=== PATIENT | female | born 1965 | race Caucasian/White ===

== ENCOUNTER → 2017-10-05 | Outpatient (CLI) | payer BC, OTHER ==
[~2017-10-05] VITALS: Ht 182.9 cm; Wt 109.8 kg
[~2017-10-05] MED LIST: ACETAMINOPHEN650 M5 PO; ALEVE220 MG PO; IBUPROFEN 200200 M1 PO; LOW DOSE ASPIRI81 M1 PO; MSM1500 MG PO; NOHOMEMEDICATIONS; NORCO 5-325 TA1 EACH PO; PROAIR HFA8.5 GM INH; QVAR8.7 G1 IH; TRAMADOL 50 MG50 MG; TRAMADOL 50 MG50 MG PO; VALTREX 500 MG500 MG PO; VITAMIN D2000 UNIT PO
--- NOTE | ~2017-10-05 | HPC ---
[address] [place] [address] PAIN MANAGEMENT CONSULTATION Name: GISELE BOND Room #: REG ANGELO Rangel.#: [id number] Admission: 10/05/17 Attend Phys: Harsha Dye MD Discharge: Date of : 69 Report #: [id number] THIS REPORT FOR: //name// CC: [facility] physician/PCP Harsha Dye DATE OF SERVICE: 10/05/2017 Followup visit for the second in a series of injections for diagnosis of lumbar spondylosis and facet pain. The patient had a favorable response to her first diagnostic injections. Pain reduced following injections by over 80% for about 4 hours before return. This favorable response is suggesting that she will be a good responder to radiofrequency ablation. We will repeat the injection per protocol today and schedule her back for radiofrequency. I am denervating the L4-L5 and L5-S1 joints by performing L3 and L4 medial branch nerve blocks as well as L5 dorsal ramus block on each side. PHYSICAL EXAMINATION: Today is unchanged from previous visit. She continues to score her pain at 8. She has pain with back extension across the lumbosacral segment and mild tenderness in the area of the facet joint. IMPRESSION: Lumbar spondylosis, grade 1 anterolisthesis affecting L4-L5. PROCEDURE: She was placed prone, skin was prepped with ChloraPrep. Skin was anesthetized with 1% lidocaine overlying the target for the L3 and L4 medial branch nerves on the L4 and L5 transverse process. A 25-gauge needle was gently advanced into position at the medial aspect of the transverse process. The C-arm was then moved into an AP position and the third needle was advanced into position at the L5 dorsal ramus. After negative aspiration of each needle, I injected 0.5 mL of 0.5% bupivacaine through each needle and the needles were removed. The C-arm was moved to the right and the same procedure was repeated. A total of 6 injections were performed to denervate the 2 joints. At the conclusion of the procedure, she was taken to recovery room for observation. Pain score at the initiation of the procedure was 8 and it was 0 at the time of discharge, she was given a diary. Followup visit by phone and will see her back in the clinic for radiofrequency ablation, which based upon early evidence, is appropriate in this patient. <ELECTRONICALLY SIGNED> By: Harsha Dye MD 10/09/17 1408 [id number] Harsha Dye MD /nt
[2017-10-05 10:05] VITALS: BP 118/78
== END | disposition home or self-care (01) ==
LOC: PAIN 07:16
DX: M47.816 Spondylosis without myelopathy or radiculopathy, lumbar region (principal)

== ENCOUNTER → 2018-01-01 | Outpatient (CLI) | payer BC, OTHER ==
[~2018-01-01] VITALS: Ht 185.4 cm; Wt 106.1 kg
[~2018-01-01] MED LIST changes: +PROTONIX40 M1 PO
--- NOTE | ~2018-01-01 | HPC ---
[facility] [address] [address] PAIN MANAGEMENT CONSULTATION Name: GISELE BOND Room #: REG ANGELO Rangel.#: [id number] Admission: 01/01/18 Attend Phys: Harsha Dye MD Discharge: Date of : 69 Report #: [id number] THIS REPORT FOR: //name// CC: [facility] physician/PCP Harsha Dye DATE OF SERVICE: 01/01/2018 Followup visit for low back pain with spondylitic features and radiating pain with numbness to the posterolateral aspect of both legs. The patient returns to pain clinic today. It has been 2-3 months since her radiofrequency ablation. I am disappointed to report that her response is limited. We felt very positive about her treatment. She is young enough to have excellent anatomy. Specific targets were ideal. Responses during the performance of the procedure were also what we would hope for and expected. She is still experiencing similar pain in her low back that radiates now down into her hips as well as down the posterolateral aspect of her legs. It is intermittent. She starts her day oftentimes with some discomfort in her back. When she gets up and moves around, it tends to ease some. She has difficulty with standing and walking. When she goes to the grocery store, she must lean forward on the cart finding consistent with patients with spondylitic changes of the lumbar spine. If she is up too long, she starts to notice some discomfort into her legs that worsens over time. We have discussed further options including the importance of ongoing exercise and we reviewed medications from antidepressants, nonsteroidal anti-inflammatory drugs, muscle relaxants to opioids. 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 I have told her if this is true, then she should stop all nonsteroidal anti-inflammatory drugs in my opinion. She has a followup scheduled this week. She has been reluctant to use much in the way of opioids and I understand her reluctance given the current feelings about opioids in the [place]. It is, however, a tool at her disposal at low dose and we talked about the dose that I had suggested earlier of 1/2 tablet of hydrocodone 5/325 tablet as a trial. She barely takes that to see if it would be effective. I explained 0-50 morphine milligram equivalency of the CDC guideline and let her know that a half of tablet would be considered 2.5 on that scale, a very low dose. Certainly something she could consider is a way of managing her pain carefully under the direction of a specialist in the pain clinic. Other options are more aggressive including spinal cord stimulation, which we touched upon today and surgical options including a fusion of her lumbar spine. [address] [address] PAIN MANAGEMENT CONSULTATION Name: VARUNGISELE Room #: REG ANGELO Smiley#: [id number] Admission: 01/01/18 Attend Phys: Harsha Dye MD Discharge: Date of : 69 Report #: [id number] One option may also be the use of an epidural steroid injection since she is not having more radicular-like symptoms. I reviewed the potential risks and benefits of that procedure with her once again. She did have response to an epidural performed a few months ago. We have decided to go forward with an injection. PHYSICAL EXAMINATION: Shows a very pleasant, outgoing female. Blood pressure is 123/73, heart rate is 82. Her BMI is 30.9. She is able to move from sitting to standing position, but has pain with back extension and some with forward flexion. She has pain with rotational movements around the hip. Straight leg raising is bilaterally positive in the posterolateral aspect of the legs. X-rays show spondylolisthesis at L4-L5. IMPRESSION: Low back pain, now with radiculopathy. PROCEDURE: Epidural steroid injection under fluoroscopic guidance. DESCRIPTION OF PROCEDURE: She was taken to fluoroscopic suite, placed prone, skin prepped with ChloraPrep. Skin anesthetized over the L4-L5 interspace. A 20-gauge Tuohy epidural needle was advanced into the epidural space with loss of resistance technique. There was no blood or CSF aspirated. 1 mL of Omnipaque injected. Good spread of dye observed in the epidural space followed by 3 mL of 1% lidocaine mixed with 80 mg triamcinolone. She tolerated the procedure well and was observed for 45 minutes and discharged. Followup visit planned in the pain clinic in 1-2 months. By: [id number] Harsha Dye MD /nt
[2018-01-01 09:54] VITALS: BP 123/73
== END | disposition home or self-care (01) ==
LOC: PAIN 06:39
DX: M54.16 Radiculopathy, lumbar region (principal); G89.29 Other chronic pain; M43.16 Spondylolisthesis, lumbar region; Z79.891 Long term (current) use of opiate analgesic; Z98.890 Other specified postprocedural states

== ENCOUNTER → 2018-02-22 | Outpatient (CLI) | payer BC, OTHER ==
[~2018-02-22] VITALS: Ht 185.4 cm; Wt 107.7 kg
[~2018-02-22] MED LIST changes: +OXYCODONE-ACET1 EACH PO
--- NOTE | ~2018-02-22 | HPC ---
[facility] [place] [place] [address] PAIN MANAGEMENT CONSULTATION Name: GISELE BOND Room #: REG ANGELO Rangel.#: [id number] Admission: 02/22/18 Attend Phys: Harsha Dye MD Discharge: Date of : 69 Report #: [id number] THIS REPORT FOR: //name// CC: Dhruv Prather MD [facility] physician/PCP Harsha Dye DATE OF SERVICE: 02/22/2018 Followup visit for chronic low back pain, now with radiation to both lower extremities. This patient returns to pain clinic today in followup. She continues to be limited in her activity due to pain in her back and her legs. She has had radiofrequency ablation, which unfortunately did not provide relief of her back pain and after the procedure, she complained of some pain into her legs. We reviewed the procedure in some detail and I looked at all the spot films. I find it unlikely that there was any damage performed to the important nerve root. All motor testing was appropriately performed and spot films taken from the lateral position show the needle depth to be quite posterior to the neural foramen. Nonetheless, following the procedure, she had more pain in her legs than she did before and she also has her persistent lumbosacral spondylosis pain. I gave a fairly thorough consultation of options in December and today, really did nothing more than reiterate some of my points from that visit. At that time, I stressed the importance of rehabilitative approach. She really does not do much in the way of exercise limited by the pain. When she tries to walk or do any sort of aerobic exercise, she stops. The back just hurts too badly. We have discussed the use of a stronger pain medication such as an opioid not as an end, but as a means to an end. I would like for her to use the pain medication to facilitate an exercise program. I talked to her very specifically about starting with program of walking or cycling on a stationary bike where she might be in flexion, a comfortable position for her. She should, first thing in the morning or perhaps even an hour before she makes her final departure from her bed, take a pain medication and then while it is at its peak effect, try and begin her exercise program. Exercise when performed persistently has shown to be perhaps the most important aspect in managing her chronic low back condition. I preached this gospel again to her. I understand that it is painful to initiate a program, but I do not think she will obtain long-term success unless she is able to pursue this important therapy. She has developed some headaches with tramadol and hydrocodone. I would prefer to use shorter acting medications and so I am going to try oxycodone 5/325 one half to one tablet first thing in the morning and she can use it also for severe [facility] [address] [place] [address] PAIN MANAGEMENT CONSULTATION Name: GISELE BOND Room #: REG ANGELO Smiley#: [id number] Admission: 02/22/18 Attend Phys: Harsha Dye MD Discharge: Date of : 69 Report #: [id number] pain. Side effects have been addressed and had a long discussion regarding the use of opioid medications and the treatment of intractable pain. I referred her also to the My Blog on her website page. PHYSICAL EXAMINATION: Today, she is pleasant, alert and oriented. Blood pressure is 138/72, heart rate 87. Pain and tenderness across the low back with pain with both flexion and extension of the lumbar spine. Local tenderness across the lumbosacral segment. Mild discomfort when her legs were straight leg raising following an L5 distribution. IMPRESSION: Chronic low back pain with some elements of radiculopathy. PLAN: 1. We decided that we will repeat the MRI also to take a look at her spondylolisthesis and see if there is any marked progress. Last MRI was performed in 2014. 2. Prescription for 30 tablets of oxycodone 5/325. Followup visit planned in 3 months. By: [id number] Harsha Dye MD /nt
[2018-02-22 13:25] VITALS: BP 138/72
== END ==
LOC: PAIN 07:29
DX: M54.16 Radiculopathy, lumbar region (principal); G89.29 Other chronic pain; Z79.899 Other long term (current) drug therapy

== ENCOUNTER → 2019-01-28 | Outpatient (CLI) | payer OTHER ==
[~2019-01-28] VITALS: Ht 185.4 cm; Wt 103.4 kg
[~2019-01-28] MED LIST changes: +QVAR REDIHALE10.6 G1 IH; -QVAR8.7 G1 IH; +VALIUM5 MG PO
--- NOTE | ~2019-01-28 | HPC ---
[facility] [address] [address] PAIN MANAGEMENT CONSULTATION Name: GISELE BOND Room #: REG ANGELO RangelDonte#: [id number] Admission: 01/28/19 ������������������ Attend Phys: Harsha Dye MD Discharge: ������������������ Date of : 69 Report #: [id number] THIS REPORT FOR: //name// CC: Dhruv Dye DATE OF SERVICE: 01/28/2019 Followup visit for chronic low back pain with spondylosis and radiculopathy. The patient returns to pain clinic today to repeat an epidural injection. Her last injection was in January. She reports substantial improvement following epidural injections. We have tried to treat these pains as facet arthropathy, which she did not respond well to radiofrequency. Epidural injection seems to provide the best relief and has allowed her to avoid significant medication use. She does have some hydrocodone available and takes only one-half tablet at a time. She does not use it excessively. She has ibuprofen, which can be helpful. Other medications include cholecalciferol, vitamin D3, MSM and valacyclovir. ALLERGIES: None. PAST MEDICAL HISTORY: Positive for recent abdominoplasty. She had an abdominal panniculus removed and feels that this has helped her pain. PHYSICAL EXAMINATION: She is a delightful 53-year-old. Blood pressure 119/71, heart rate 82, respirations 16, BMI is 30.1. She is able to independently move from a sitting to standing position. Her gait is mildly antalgic. Her spine is mildly tender. She has pain with both flexion and extension. She has more pain with flexion; however, then she does extension suggesting there may be a discogenic mechanism. Straight leg raising is mildly positive for some burning with majority of her pain in her low back. I reviewed with her, her MRI. It was done after her last visit here last year. She has a grade 1 spondylolisthesis of L4 on L5 with disk space narrowing. There is moderate bilateral neuroforaminal stenosis involving the exiting L4 nerve roots. There is also disk desiccation at L5-S1 and a paracentric protrusion on the right at that level. There is significant bilateral hypertrophic facet arthrosis noted at L3-L4 and L4-L5. IMPRESSION: Low back pain with radiculopathy. RECOMMENDATIONS: Epidural steroid injection under fluoroscopic guidance. PROCEDURE: She was taken to fluoroscopic suite for treatment, placed prone, [place] [address] PAIN MANAGEMENT CONSULTATION Name: GISELE BOND Room #: REG ANGELO Smiley#: [id number] Admission: 01/28/19 ������������������ Attend Phys: Harsha Dye MD Discharge: ������������������ Date of : 69 Report #: [id number] skin prepped with ChloraPrep. Skin anesthetized over the L4-L5 interspace. A 20-gauge Tuohy epidural needle advanced first attempt in the epidural space with loss of resistance. There was no blood or CSF aspirated. A 1 mL of Omnipaque injected, good spread of dye observed in the epidural space followed by 3 mL of 0.5% lidocaine mixed with 80 mg triamcinolone. She tolerated the procedure well and was observed for 45 minutes and discharged. Followup visit as needed. ��������������������������������������������� ���������������������������������������� By: ��������������������������������������������� [id number] [id number] Harsha Dye MD /nt
[2019-01-28 13:51] VITALS: BP 119/71
--- NOTE | 2019-01-28 14:25 | NUR ---
Pain Clinic Assessment: 1. History of Osteoarthritis: BACK NECK History of Rheumatoid Arthritis: NO 2. Height: 6 ft. 1 in. 185.4 cm. Weight: 228.0 lb. oz. 103.420 kg. Patient's BMI: 30.1 3. Vital Signs: BP: 119/71 Pulse: 82 Resp: 16 Temp: 02 Sat: 97 ECG Mon: 4. Pain Intensity: 7 5. Fall Risk: Dizziness: N Needs help standing or walking: N Fallen in the last 3 months: N Fall risk comments: 6. Patient on Blood Thinner: None 7. History of Hypertension: N 8. Opioid Therapy greater than 6 weeks: N Opiate Contract Signed: 9. Risk Assessment Tool Provided: 10. Functional Assessment Tool: 11. Recreational Drug Use: Never Drug Type: Tobacco Use: Never Smoker Tobacco Type: Amount or Packs/day: How Many Years: Alcohol Use: No Frequency: Quant:
== END | disposition home or self-care (01) ==
LOC: PAIN 01-14 10:08
DX: M54.16 Radiculopathy, lumbar region (principal); G89.29 Other chronic pain; Z98.890 Other specified postprocedural states; Z79.899 Other long term (current) drug therapy; Z79.891 Long term (current) use of opiate analgesic

== ENCOUNTER → 2019-08-22 | Outpatient (CLI) | payer OTHER ==
[~2019-08-22] VITALS: Ht 185.4 cm; Wt 104.2 kg
[~2019-08-22] MED LIST changes: +NORCO 5-325 TA1 EAC1 PO; +PERCOCET 5-3251 EACH PO
[2019-08-22 13:41] VITALS: BP 114/67
--- NOTE | 2019-08-22 14:05 | NUR ---
Pain Clinic Assessment: 1. History of Osteoarthritis: BACK NECK History of Rheumatoid Arthritis: NO 2. Height: 6 ft. 1 in. 185.4 cm. Weight: 229.8 lb. oz. 104.237 kg. Patient's BMI: 30.3 3. Vital Signs: BP: 114/67 Pulse: 86 Resp: 16 Temp: 02 Sat: 97 ECG Mon: 4. Pain Intensity: 7 5. Fall Risk: Dizziness: N Needs help standing or walking: N Fallen in the last 3 months: N Fall risk comments: 6. Patient on Blood Thinner: None 7. History of Hypertension: N 8. Opioid Therapy greater than 6 weeks: N Opiate Contract Signed: 9. Risk Assessment Tool Provided: 10. Functional Assessment Tool: 11. Recreational Drug Use: Never Drug Type: Tobacco Use: Never Smoker Tobacco Type: Amount or Packs/day: How Many Years: Alcohol Use: No Frequency: Quant:
--- NOTE | 2019-08-29 14:31 | HPC ---
[facility] [place] [address] PAIN MANAGEMENT CONSULTATION Name: GISELE BOND Room #: REG ANGELO Rangel.#: [id number] Admission: 08/22/19 Attend Phys: Harsha Dye MD Discharge: Date of : 69 Report #: [id number] THIS REPORT FOR: cc: Dhruv Prather MD [facility] Dhruv Prather MD [facility] Harsha Dye MD ~ THIS REPORT FOR: //name// CC: Dhruv Dye DATE OF SERVICE: 08/22/2019 REASON FOR VISIT: Followup visit for chronic low back pain with radiculopathy and muscle spasm with myofascial pain. SUBJECTIVE: The patient returns to pain clinic today for help with her ongoing pain, which she scores as a 7/10 on a daily basis. She is going through a difficult time. 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 Although the mother lives independently, she needs a lot of guidance and help. In addition, she is finding it more difficult to do daily activities and due to the pain has become more sedentary. The majority of her pain is in the lumbosacral region. We have reviewed her MRI on several occasions. She has a grade 1 spondylolisthesis of L4 and L5 with moderate neural foraminal narrowing involving the L4 nerve root. Disk desiccation below in the paracentral protrusion suggest that she may have a combination of discogenic pain and facet arthropathy. I treated her with radiofrequency ablation, which was unfortunately unsuccessful in alleviating a large component of her pain. She has generally done well at least receiving some temporary relief measured in months with epidural steroid injections. It has been sometime since she had an ejection December 2018. She received one injection in 2017, one injection in 2018. She would like to repeat the injection today based upon her prior response. More aggressive treatments including surgery have been contemplated, but she would like to avoid that. I did spend about 10 minutes with her today discussing the importance of regular daily exercise and making this a habit. I do think that core strengthening, daily walking program, weight loss, all can provide the best long-term outcome for her and she knows this. She then discussed again the barriers to her following up on this due to the stressful issues going on in her life. I have asked her to make a better effort, starting primarily with a daily walking program and some flexion exercises that she can do in the floor afterwards. [address] [address] PAIN MANAGEMENT CONSULTATION Name: GISELE BOND Room #: REG CL Baljit#: [id number] Admission: 08/22/19 Attend Phys: Harsha Dye MD Discharge: Date of : 69 Report #: [id number] PHYSICAL EXAMINATION: GENERAL: She is 6 feet 1 inch, 229 with a BMI of 30.3. VITAL SIGNS: Blood pressure 114/67, heart rate 86, respirations 16, O2 sat 97. She moves independently and easily walks without antalgic features. MUSCULOSKELETAL: Examination of the spine reveals tenderness across the lumbosacral segment. She has tenderness also bit along each of the sacroiliac joints. She has pain with back extension, which reproduces pain that radiates a little bit into her buttocks and the way of some radiculopathy. IMPRESSION: Chronic low back pain with radiculopathy, grade 1 spondylolisthesis L4-L5 with disk space narrowing and disk desiccation at L4-L5 and L5-S1, resulting in some discogenic pain. RECOMMENDATIONS: Epidural steroid injection. I will also renew Valium 5 mg, which she uses sparingly 1/2 tablet not even on a daily basis, but it is helpful for the myofascial component. <ELECTRONICALLY SIGNED> By: Harsha Dye MD 08/29/19 1431 [id number] Harsha Dye MD /nt
== END ==
LOC: PAIN 06:53
DX: M43.16 Spondylolisthesis, lumbar region (principal); M48.061 Spinal stenosis, lumbar region without neurogenic claudication

== ENCOUNTER → 2019-08-26 | Outpatient (CLI) | payer OTHER ==
[~2019-08-26] VITALS: Ht 185.4 cm; Wt 103.9 kg
[2019-08-26 09:06] VITALS: BP 114/79
--- NOTE | 2019-08-26 09:22 | NUR ---
Pain Clinic Assessment: 1. History of Osteoarthritis: BACK NECK History of Rheumatoid Arthritis: NO 2. Height: 6 ft. 1 in. 185.4 cm. Weight: 229.0 lb. oz. 103.874 kg. Patient's BMI: 30.2 3. Vital Signs: BP: 114/79 Pulse: 80 Resp: 20 Temp: 02 Sat: 98 ECG Mon: 4. Pain Intensity: 8 5. Fall Risk: Dizziness: N Needs help standing or walking: N Fallen in the last 3 months: N Fall risk comments: 6. Patient on Blood Thinner: None 7. History of Hypertension: N 8. Opioid Therapy greater than 6 weeks: N Opiate Contract Signed: 9. Risk Assessment Tool Provided: 10. Functional Assessment Tool: 11. Recreational Drug Use: Never Drug Type: Tobacco Use: Never Smoker Tobacco Type: Amount or Packs/day: How Many Years: Alcohol Use: No Frequency: Quant:
--- NOTE | 2019-08-29 14:31 | P ---
[facility] [place] [address] [place] [address] PROCEDURE REPORT Name: GISELE BOND Room #: REG ANGELO Rangel.#: [id number] Admission: 08/26/19 Attend Phys: Harsha Dye MD Discharge: Date of : 69 Report #: [id number] THIS REPORT FOR: cc: Dhruv Prather MD [facility] Dhruv Prather MD [facility] Harsha Dye MD ~ CC: Dhruv Prather MD [facility] Harsha Dye DATE OF SERVICE: 08/26/2019 INDICATIONS FOR PROCEDURE: Followup visit for lumbar epidural injection. I saw the patient on 08/22/2019 just 4 days ago. Preauthorization was required for her injection and she has returned today for that injection. There have been no significant changes. DIAGNOSES: 1. Lumbar radiculopathy secondary to spondylolisthesis, grade 1, L4-L5. 2. Lumbar discogenic pain. PROCEDURE: L4-L5 epidural injection under fluoroscopic guidance. DESCRIPTION OF PROCEDURE: After informed consent, she was taken to fluoroscopic suite. She was placed in the prone position. Skin prepped with ChloraPrep. Skin anesthetized over the L4-L5 interspace. A 20-gauge Tuohy epidural needle advanced on the first attempt into the epidural space with loss of resistance. There was no blood nor CSF aspirated. A 1 mL of Omnipaque injected. Good spread of dye observed into the epidural space followed by 3 mL of 0.5% lidocaine mixed with 80 mg of triamcinolone. She tolerated the procedure well. There were no complications. She was observed for about 45 minutes and discharged from the recovery room. Reporting a pain score of 1, significant improvement over her presentation at 7. Follow up as needed. <ELECTRONICALLY SIGNED> By: Harsah Dye MD 08/29/19 1431 1207 [id number] Harsha Dye MD /nt
== END | disposition home or self-care (01) ==
LOC: PAIN 06:34
DX: M54.16 Radiculopathy, lumbar region (principal); M51.36 Other intervertebral disc degeneration, lumbar region; G89.29 Other chronic pain; Z98.890 Other specified postprocedural states; Z79.899 Other long term (current) drug therapy

== ENCOUNTER → 2020-03-02 | Outpatient (CLI) | payer OTHER ==
[~2020-03-02] VITALS: Ht 185.4 cm; Wt 109.1 kg
[~2020-03-02] MED LIST changes: +COLESTIPOL HCL1 G1 PO; +DIAZEPAM 5 MG5 M1 PO; +ENDOCET 5-3251 EACH PO; +LORCET 5-325 M1 EACH PO; +OMEPRAZOLE 20 M20 M1 PO
--- NOTE | ~2020-03-02 | HPC ---
[facility] [address] [place] [address] PAIN MANAGEMENT CONSULTATION Name: GISELE BOND Room #: REG [facility] Juan Carlos.#: [id number] Admission: 03/02/20 Attend Phys: Harsha Dye MD Discharge: Date of : 69 Report #: [id number] THIS REPORT FOR: cc: Dhruv Prather MD [facility] Dhruv Prather MD [facility] Harsha Dye MD ~ CC: Dhruv Dye DATE OF SERVICE: 03/02/2020 Followup visit for chronic back pain. HISTORY OF PRESENT ILLNESS: I am seeing Gisele today because her back is really bothering her. There is no radiculopathy. Pain is across the lumbosacral segment. She scores it as an 8/10. It is really affecting many of her activities of daily living. She has trouble with standing, walking, bending, twisting. She has in the past had some L5-S1 radicular pain and we have treated her with epidural injections. Epidural injections have been hit and miss, some more effective than others. Almost all have been performed at the very lowest level either L4-L5 or L5-S1. Most recent MRI that I have is from 2018, it shows some chronic changes that were present in 2015 with a grade 1 spondylolisthesis of 4 on 5 measuring 10 mm due to advance hypertrophic facet arthrosis that caused bilateral neural foraminal narrowing and effacement of the undersurface of both the exiting L4 nerve roots. She also had stable spondylosis at L3-L4 and L5-S1. MEDICATIONS: Diazepam is taken very infrequently for muscle spasm and she also has had some oxycodone in the past, 1 prescription provided in 2018 is still being used for this recent episode of back pain. PAST MEDICAL HISTORY: Recent is significant for an illness in August, which she feels may have been COVID. She never got antigen or antibody tested, but she still has fatigue, which she describes as brain fatigue, tiredness, asthma. She has been following with Dr. Sheikh for many years, resource paraprofessional who has helped her with some chronic breathing issues and allergies. PHYSICAL EXAMINATION: GENERAL: She is a pleasant 54-year-old. VITAL SIGNS: Blood pressure is 141/83, heart rate 96, respirations 18, O2 sat is 98. BMI 31.8. She is a tall lady, 6 feet 1 inches tall, 240 pounds. She has pain with standing and takes her a while to stand upright. Pain is across the lumbosacral segment. She is more comfortable in flexion than she is in extension. Straight leg raising today is negative. IMPRESSION: Lumbar spondylosis. Her first presentation is classic for someone [facility] [address] [place] [address] PAIN MANAGEMENT CONSULTATION Name: RUBY BONDNN Room #: REG ANGELO Smiley#: [id number] Admission: 03/02/20 Attend Phys: Harsha Dye MD Discharge: Date of : 69 Report #: [id number] with facet arthropathy and we have tried radiofrequency ablation, which was unsuccessful. She does not want to repeat it. I have had some success in patients providing just facet triamcinolone injections with small amounts of triamcinolone 10 mg or so applied to the L3-L4, L4-L5 and L5-S1 facet joints, which are shown to be arthritic in her x-rays. She would like to go forward with that and I think that is a reasonable approach to try and break the cycle of pain. Preauthorization is required. We will seek preauthorization, bring her back in pain clinic on and perform those injections. I did renew very small doses of diazepam to use for muscle spasm, and oxycodone 5 mg to be used when the pain is severe, she will not take them simultaneously. We discussed the opioid, benzodiazepine interaction. She will be very cautious. Followup visit planned on for injections. By: [id number] Harsha Dye MD /nt
[2020-03-02 10:54] VITALS: BP 141/83
== END ==
LOC: PAIN 07:01
PROVIDERS: ATTEND Anesthesiology Pain Medicine
DX: M47.816 Spondylosis without myelopathy or radiculopathy, lumbar region (principal); G89.29 Other chronic pain

== ENCOUNTER → 2020-03-05 | Outpatient (CLI) | payer OTHER ==
[~2020-03-05] VITALS: Ht 185.4 cm; Wt 109.1 kg
--- NOTE | ~2020-03-05 | HPC ---
[facility] [place] [address] [place] [address] PAIN MANAGEMENT CONSULTATION Name: GISELE BOND Room #: REG ANGELO RangelDonte#: [id number] Admission: 03/05/20 Attend Phys: Harsha Dye MD Discharge: Date of : 69 Report #: [id number] THIS REPORT FOR: cc: Dhruv Prather MD [facility] Dhruv Prather MD [facility] Harsha Dye MD ~ CC: Dhruv Prather MD [facility] Harsha Dye DATE OF SERVICE: 03/05/2020 Followup visit for lumbar spondylosis and lumbosacral pain. The patient returns today for procedure. We had an extensive consultation at her last visit discussing her ongoing low back pain. We discussed a number of different options for treatment. She has failed radiofrequency ablation, but had response to diagnostic blocks. I have suggested that we try triamcinolone injections to see if she can get some relief measured in months. She is anxious to proceed. Please refer to dictation from 03/02/2020. IMPRESSION: Lumbar spondylosis. PROCEDURE: Bilateral L3-L4, L4-L5 and L5-S1 facet injections with triamcinolone and bupivacaine. After informed consent, she was taken to the fluoroscopic suite and placed prone. Skin was prepped with ChloraPrep. Skin was anesthetized over the L3-L4, L4-L5 and L5-S1 facet joints on the left. I carefully advanced a 25-gauge 3-1/2 inch needle into the posterior inferior recess of the facet joint at each level and then after negative aspiration, I injected 1 mL of 0.5% bupivacaine mixed with 15 mg of triamcinolone. The needle was removed from each location and she was repositioned. We began then on the right. Mirror image technique was utilized. Skin anesthetized over the same joints on the opposite side. Identical technique, needle placement and injectate was utilized to inject the L3-L4, L4-L5 and L5-S1 joint on the right without complication. She tolerated the procedures well. Band-Aids were placed over the needle locations. She was taken to recovery room and ice was applied. We did discuss the importance of physical activity and exercise. Also talked about soft tissue mobilization techniques and massage, which may be helpful for her as well. [address] [address] PAIN MANAGEMENT CONSULTATION Name: GISELE BOND Room #: REG [facility].#: [id number] Admission: 03/05/20 Attend Phys: Harsha Dye MD Discharge: Date of : 69 Report #: [id number] Followup visit planned in 1 month. By: [id number] Harsha Dye MD /nt
[2020-03-05 09:11] VITALS: BP 131/76
--- NOTE | 2020-03-05 09:22 | NUR ---
Pain Clinic Assessment: 1. History of Osteoarthritis: BACK NECK History of Rheumatoid Arthritis: NO 2. Height: 6 ft. 1 in. 185.4 cm. Weight: 240.6 lb. oz. 109.136 kg. Patient's BMI: 31.8 3. Vital Signs: BP: 131/76 Pulse: 94 Resp: 16 Temp: 02 Sat: 100 ECG Mon: 4. Pain Intensity: 7 5. Fall Risk: Dizziness: N Needs help standing or walking: N Fallen in the last 3 months: N Fall risk comments: 6. Patient on Blood Thinner: None 7. History of Hypertension: N 8. Opioid Therapy greater than 6 weeks: N Opiate Contract Signed: 9. Risk Assessment Tool Provided: 0-low risk 10. Functional Assessment Tool: 49/71 11. Recreational Drug Use: Never Drug Type: Tobacco Use: Never Smoker Tobacco Type: Amount or Packs/day: How Many Years: Alcohol Use: No Frequency: Quant:
== END | disposition home or self-care (01) ==
LOC: PAIN 06:52
PROVIDERS: ATTEND Anesthesiology Pain Medicine
DX: M47.816 Spondylosis without myelopathy or radiculopathy, lumbar region (principal); Z79.899 Other long term (current) drug therapy; Z98.890 Other specified postprocedural states

== ENCOUNTER → 2020-07-06 | Outpatient (CLI) | payer OTHER ==
[~2020-07-06] VITALS: Ht 185.4 cm; Wt 109.6 kg
[2020-07-06 10:37] VITALS: BP 142/89
[2020-07-06 10:47] VITALS: BP 116/84
--- NOTE | 2020-07-06 11:04 | NUR ---
Pain Clinic Assessment: 1. History of Osteoarthritis: BACK NECK History of Rheumatoid Arthritis: NO 2. Height: 6 ft. 1 in. 185.4 cm. Weight: 241.6 lb. oz. 109.589 kg. Patient's BMI: 31.9 3. Vital Signs: BP: 116/84 Pulse: 95 Resp: 16 Temp: 02 Sat: 99 ECG Mon: 4. Pain Intensity: 5 5. Fall Risk: Dizziness: N Needs help standing or walking: N Fallen in the last 3 months: N Fall risk comments: 6. Patient on Blood Thinner: None 7. History of Hypertension: N 8. Opioid Therapy greater than 6 weeks: N Opiate Contract Signed: 9. Risk Assessment Tool Provided: 0-low risk 10. Functional Assessment Tool: 34/ 11. Recreational Drug Use: Never Drug Type: Tobacco Use: Never Smoker Tobacco Type: Amount or Packs/day: How Many Years: Alcohol Use: No Frequency: Quant:
== END ==
LOC: PAIN 06-29 13:11
PROVIDERS: ATTEND Anesthesiology Pain Medicine
DX: M47.816 Spondylosis without myelopathy or radiculopathy, lumbar region (principal); M48.061 Spinal stenosis, lumbar region without neurogenic claudication; Z88.8 Allergy status to other drugs, medicaments and biological substances; Z79.899 Other long term (current) drug therapy

== ENCOUNTER → 2020-07-13 | Outpatient (CLI) | payer OTHER ==
[~2020-07-13] VITALS: Ht 185.4 cm; Wt 107.6 kg
[2020-07-13 12:53] VITALS: BP 122/80
--- NOTE | 2020-07-13 13:20 | NUR ---
Pain Clinic Assessment: 1. History of Osteoarthritis: BACK NECK History of Rheumatoid Arthritis: NO 2. Height: 6 ft. 1 in. 185.4 cm. Weight: 237.2 lb. oz. 107.593 kg. Patient's BMI: 31.3 3. Vital Signs: BP: 122/80 Pulse: 93 Resp: 14 Temp: 02 Sat: 98 ECG Mon: 4. Pain Intensity: 6-7 5. Fall Risk: Dizziness: N Needs help standing or walking: N Fallen in the last 3 months: N Fall risk comments: 6. Patient on Blood Thinner: None 7. History of Hypertension: N 8. Opioid Therapy greater than 6 weeks: N Opiate Contract Signed: 9. Risk Assessment Tool Provided: 0-low risk 10. Functional Assessment Tool: 11. Recreational Drug Use: Never Drug Type: Tobacco Use: Never Smoker Tobacco Type: Amount or Packs/day: How Many Years: Alcohol Use: No Frequency: Quant:
== END | disposition home or self-care (01) ==
LOC: PAIN 06:56
PROVIDERS: ATTEND Anesthesiology Pain Medicine
DX: M47.816 Spondylosis without myelopathy or radiculopathy, lumbar region (principal); G89.29 Other chronic pain; Z98.890 Other specified postprocedural states; Z79.899 Other long term (current) drug therapy